=== PATIENT | male | born 2005 | race Caucasian/White ===

== ENCOUNTER 2023-04-26 10:20 | Emergency (ER) | payer BC, SELFPAY ==
--- NOTE | ~2023-04-26 | XR_ITS ---
EXAMINATION: XR LUMBOSACRAL SPINE CLINICAL INFORMATION: Back pain COMPARISON: None available. TECHNIQUE: Three views of the lumbosacral spine. FINDINGS: There are 6 nonrib-bearing lumbar-type vertebra with a transitional vertebra at the lumbosacral junction. 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 Using this convention, there is a grade 1 anterolisthesis of L5 on S1 with likely bilateral pars defects at L5. Vertebral body heights are preserved. Bowel gas pattern unremarkable XR/XR lumbar spine 2-3V IMPRESSION: Grade 1 anterolisthesis of L5 on S1 with likely bilateral pars defects at L5. There is a transitional vertebra at the lumbosacral junction as described above.
[2023-04-26 10:23] VITALS: BP 120/66; PULSE 79; RESP 16; TEMP 36.9; O2SAT 100; BMI 19.7
--- NOTE | 2023-04-26 10:37 | PC.NURSE ---
Pt reporting he was jumping on trampoline yesterday, this morning feeling dull pain in his lower back, reporting if he pushes on it he feels static around that area. Denies numbness/tingling/able to move all extremities, able to move around in bed with no concerns, denies BRADSHAW/blurry vision
--- NOTE | 2023-04-26 11:00 | ED_ITS ---
HPI - General Adult General Chief complaint: Back Pain/Injury Stated complaint: Lower back pain Time Seen by Provider: 04/26/23 10:46 Source: patient and RN notes reviewed Mode of arrival: ambulatory Limitations: no limitations History of Present Illness HPI narrative: 18-year-old male is here today for complaining of lower back pain. Patient reports that he was at the [employer] yesterday. Patient denies injury. Went to sleep without having any pain. Patient reports woke up this morning with lower back pain. Patient denies having any muscle spasm. Patient denies any fecal or urinary incontinence. Denies any tingling sensation. Patient reports that the pain does not radiate. Onset (ago): hour(s) Location: back Radiation: non-radiation Related Data Previous Rx's Medication Instructions Recorded ibuprofen 600 mg tablet 600 mg PO Q8H PRN pain #20 tabs 04/26/23 Allergies Allergy/AdvReac Type Severity Reaction Status Date / Time No Known Allergies Allergy Verified 04/26/23 10:22 Review of Systems Review of Systems: Constitutional : No Weight loss, No Fever, No Chills, No Night Sweats, No Fatigue, No Malaise Genitourinary : No Dysuria, No Urinary Frequency, No Hematuria, No Urinary Incontinence, No Urgency, No Flank Pain, No Urinary Flow Changes, No Hesitancy Musculoskeletal : No joint pain, No Myalgias, No Joint Swelling Skin : No Skin Lesions, No rash Neuro : No Weakness, No Numbness, No Paresthesias, No Loss of Consciousness, No Dizziness, No Headache Psych : No Anxiety/Panic, No Depression, No SI/HI/AH/VH, No Social Issues, Heme/Lymph: No Bruising, No Bleeding,No Lymphadenopathy Endocrine : No Polyuria, No Polydipsia, No Temperature Intolerance Yes all other systems are reviewed and are negative PMFSH Social History Social History Advance Directives: No Physical Exam ED Vital Signs: Vital Signs - 24 hr 04/26/23 10:23 Temperature 98.4 F Pulse Rate 79 Respiratory Rate 16 Blood Pressure 120/66 Pulse Oximetry 100 BMI result Body Mass Index 19.7 Const General: healthy appearing, no acute distress and well developed Nutritional Appearance: well nourished Orientation/consciousness: patient oriented x3 HENMT Head: Yes normal to inspection, Yes normocephalic and Yes atraumatic Face and sinus: Yes normal facial exam Mouth: Normal oral and palatal mucosa present Throat: Yes posterior oropharynx normal, Yes tonsils normal and Yes uvula midline Eyes General: appearance normal, both eyes and all related structures Neck Neck: Yes normal visual inspection, Yes full ROM and Yes trachea midline Thyroid: Thyroid normal Resp Effort & Inspection: normal respiratory effort GI Palpation (GI): Soft to palpation, not firm and nontender General: Yes no CVA tenderness Back/Spine/Pelvis Back: no CVA tenderness Skin General skin exam: elasticity normal, turgor normal and dry skin Neuro General: patient oriented x3 Course Course Course Narrative: 18-year-old male is here today for complaining of lower back pain. Patient reports that he was at the [employer] yesterday. Patient denies injury. Went to sleep without having any pain. Patient reports woke up this morning with lower back pain. Patient denies having any muscle spasm. Patient denies any fecal or urinary incontinence. Denies any tingling sensation. Patient reports that the pain does not radiate. Reevaluation(s) Reevaluation #1: Lumbar and spine x-ray negative for any acute processes. Patient will be giving ibuprofen. Patient can follow-up with his PCP. If symptoms get worse patient was encouraged to return to emergency department if he will have any fecal or urinary incontinence. Any tingling sensation. Medications Administered Discontinued Medications Generic Name Dose Route Start Last Admin Trade Name Freq PRN Reason Stop Dose Admin Ibuprofen 600 mg 04/26/23 11:00 04/26/23 11:05 Ibuprofen 600 Mg Tablet PO 04/26/23 11:01 600 mg ONCE ONE Administration Medical Decision Making Independent Interpretation I performed an independent interpretation of an: Plain X-Ray Radiology Impression Discussion of test interpretation with radiology: I have reviewed the radiologist's reading. Radiologist Impression: FINDINGS: There are 6 nonrib-bearing lumbar-type vertebra with a transitional vertebra at the lumbosacral junction. 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 Using this convention, there is a grade 1 anterolisthesis of L5 on S1 with likely bilateral pars defects at L5. Vertebral body heights are preserved. Bowel gas pattern unremarkable XR/XR lumbar spine 2-3V IMPRESSION: Grade 1 anterolisthesis of L5 on S1 with likely bilateral pars defects at L5. There is a transitional vertebra at the lumbosacral junction as described above. Discharge Plan Discharge Clinical Impression: Strain of lumbar region Qualifiers: Encounter type: initial encounter Qualified Code(s): S39.012A - Strain of muscle, fascia and tendon of lower back, initial encounter Patient Disposition: Home, Self-Care Instructions: Back Pain (ED), Lower Back Exercises (ED) Additional Instructions: You were seen here today for back pain. X-ray is negative for any acute finding. You will be giving script for ibuprofen. Please follow-up with your primary care doctor and return to ED if your symptoms will get worse or experience any other concerning symptoms Prescriptions: New ibuprofen 600 mg tablet 600 mg PO Q8H PRN (Reason: pain) Qty: 20 0RF Interventions: ED Discharge Assessment Last Done: 04/26/23 12:05 Discharge Date/Time: 04/26/23 12:06
[2023-04-26] MEDS: Ibuprofen 600 MG TABLET PO (11:05)
== END 2023-04-26 12:06 | disposition home or self-care (01) ==
PROVIDERS: Emergency Provider Emergency Medicine
DX: S39.012A Strain of muscle, fascia and tendon of lower back, initial encounter (principal); Y93.44 Activity, trampolining; Y92.9 Unspecified place or not applicable; Y99.9 Unspecified external cause status
CPT/HCPCS: 72100; 99283; 99284

== ENCOUNTER 2024-10-10 13:44 | Outpatient (AMB) | payer BC, SELFPAY ==
--- NOTE | 2024-10-10 13:45 | A.OFFPC_ITS ---
Vital Signs 10/10/24 13:47 Height 5 ft 8.9 in Weight 137 lb BMI 20.3 BP 110/50 L Blood Pressure Location Lt brachial Position Sitting Pulse 96 Pulse Source Pulse Oximeter Temp 97.3 F Temp Source Temporal Artery Scan Pulse Oximetry (%) 97 Oxygen Delivery Method Room Air Intake Visit Reasons: establish care Intake Note: Patient is a new patient here to establish care for wellness visit. Transferring care from Dr Garcia([facility]). Medical records have been requested and have received. Dental Assistant Teacher Required: No Tint Layer: Not Required per policy Accompanied by: Self / Same As Patient Allergies No Known Allergies Allergy (Verified 10/10/24 14:01) Medication List - Last Reconciled 10/10/24 by CARLOS Austin No Known Home Meds Tobacco use date assessed: 10/10/24 Dental Screening Dental Screen Date: 10/10/24 Did you have a dental visit in the last 12 months?: Yes Did you have a dental problem in the last 6 months where you did not have access to dental care?: No Was dental information given to patient?: Patient has dentist HPI establish care HPI Details The patient is a 19-year-old male presenting for a wellness visit as well as establishing care from Dr. Garcia ([facility]), primarily discussing anxiety management and lifestyle habits. He reports chronic anxiety since childhood, exacerbated by adulthood challenges. He smokes cannabis regularly to relieve anxiety, finding it beneficial, but notes the importance of regular meals, which he struggles with due to a demanding work schedule as a [employer]. He misses meals frequently, impacting his health negatively. Alcohol use is limited to social occasions. He does not use cigarettes. There is a family history of alcoholism, especially on his father's side, which influences his moderation with alcohol. The patient recounted an episode of fainting in a bar, suspecting it was due to not eating or hydrating adequately that day. Past medical history of a chlamydia diagnosis during adolescence was noted. [facility] Medical History (Updated 10/10/24 @ 23:55 by CARLOS Austin) Chlamydia Seasonal allergic rhinitis Anxiety Surgical History No pertinent past surgical history Family History (Updated 10/10/24 @ 23:46 by CARLOS Austin) Father Alcoholism Other Mental health disorder Substance use disorder Social History Housing: House Alcohol intake: current Alcohol intake frequency: holidays/special occasions only Patient Tobacco Use Status: Never used Tobacco e-Cigarette/Vaping Use: Currently Using Frequency of e-Cigarette/Vaping Use: Daily Second Hand Smoke Exposure: No service: No Current occupational status: employed Current occupation: [employer] Cognitive needs: No Hearing needs: No Vision needs: Yes (Glasses) Questionnaire PHQ-9 Over the last 2 weeks, how often have you been bothered by any of the following problems? 1. Little interest or pleasure in doing things: not at all 2. Feeling down, depressed, or hopeless: not at all 3. Trouble falling or staying asleep, or sleeping too much: not at all 4. Feeling tired or having little energy: not at all 5. Poor appetite or overeating: not at all 6. Feeling bad about yourself - or that you are a failure or have let yourself or your family down: not at all 7. Trouble concentrating on things, such as reading the newspaper or watching television: not at all 8. Moving or speaking so slowly that other people could have noticed. Or the opposite - being so fidgety or restless that you have been moving around a lot more than usual: not at all 9. Thoughts that you would be better off or of hurting yourself in some way: not at all Total score: 0 Depression Screening Interpretation: Negative Depression Screening Done: Yes 57017 - PHQ-9 Billing: Yes Source: Developed by Drs. Elmer Dasilva, Porsha Tovar, Kj Theodore and colleagues, with an educational brenda from [employer]. Thrive Questionnaire Date Thrive assessed: 10/10/24 I am a: Patient What is your living situation today?: I have a steady place to live Within the past 12 months, did the food you bought not last and you didn't have the money to get more?: Never true Within the past 12 months, did you worry whether your food would run out before you got money to buy more?: Never true Do you have trouble paying for medicines?: No Do you have trouble getting transportation to medical appointments?: No Do you have trouble paying your heating and electricity bill?: No Do you have trouble taking care of your child, family member or friend?: No Do you have trouble with day-to-day activities such as bathing, preparing meals, shopping, managing finances, etc.?: No Are you currently unemployed and looking for a job?: No Are you interested in more education?: No Please select the resources that you would like help with: None Currently or been in a relationship where the following occur: No concerns reported THRIVE Score: 0 AUDIT C Alcohol Use Questionnaire (AUDIT-C) 1. How often do you have a drink containing alcohol?: Monthly or less 2. How many drinks containing alcohol do you have on a typical day when you are drinking?: 1 or 2 Total Score: 1 BLADIMIR-7 AMB Questionnaire BLADIMIR-7 Date BLADIMIR - 7 assessed: 10/10/24 Feeling nervous, anxious, or on edge: 2 = More than half the days Not being able to stop or control worryin = Not at all Worrying too much about different things: 0 = Not at all Trouble relaxin = Several days Being so restless that it is hard to sit still: 0 = Not at all Becoming easily annoyed or irritable: 0 = Not at all Feeling afraid as if something awful might happen: 2 = More than half the days Total BLADIMIR-7 score (0-4 normal; 5-9 mild; 10-14 moderate; 15-21 severe): 5 Source: Developed by Drs. Elmer Dasilva, Porsha Tovar, Kj Theodore and colleagues, with an educational brenda from [employer]. BLADIMIR-7 Assessment Billing BLADIMIR-7 Assessment Tool: BLADIMIR-7 Assessment 16332 Review of Systems Const Denies headache(s) Eyes Denies loss of vision ENT Denies vertigo, Denies dizziness, Denies headache(s), Reports nasal congestion, Denies sore throat and Reports other (sneezing) Card Denies chest pain, Denies leg edema and Denies lightheadedness Resp Denies cough, Denies hemoptysis and Denies wheezing GI Denies abdominal pain, Denies melena, Denies constipation, Denies diarrhea and Denies vomiting Denies dysuria, Denies urinary frequency and Denies urinary urgency Musc Denies arthralgias, Denies joint swelling, Denies numbness and Denies tingling Neuro Denies Abnormal speech present, Denies behavioral changes, Denies vertigo, Denies dizziness, Denies headache(s), Denies loss of vision, Denies memory loss, Denies numbness and Denies tingling Psych Denies anxiety, Denies behavioral changes, Denies depression, Denies memory loss and Denies panic attacks Arley/Lymph Denies easy bleeding and Denies easy bruising Aller/Immun Denies wheezing Physical exam (Primary Care) Vital Signs: Last Vital Signs Temp 97.3 F 10/10/24 13:47 Pulse 96 10/10/24 13:47 BP 110/50 L 10/10/24 13:47 Pulse Ox 97 10/10/24 13:47 Oxygen Delivery Method Room Air 10/10/24 13:47 BMI result Body Mass Index 20.3 Tobacco/Smoking Status: Tobacco use Status Tobacco use date assessed 10/10/24 10/10/24 13:58 Patient Tobacco Use Status Never used Tobacco 10/10/24 13:58 e-Cigarette/Vaping Use Currently Using 10/10/24 13:58 PHQ-9: PHQ-9 Score PHQ-9: Total score 0 10/10/24 14:07 Depression Screening Interpretation: Negative Thrive Assessment: Date of Thrive Assessment Date Thrive assessed 10/10/24 10/10/24 13:58 Currently or been in a relationship where the following occur: No concerns reported Const General: healthy appearing, no acute distress, alert and awake Nutritional Appearance: well nourished Orientation/consciousness: oriented to person, oriented to place and oriented to time HENMT Ears: TM's normal bilaterally General nose exam: Normal nasal mucous membranes and turbinates present Eyes Conjunctivae: conjunctivae normal Sclerae: sclerae normal Pupils: Equal, round and reactive pupils present Neck Neck: Yes no lymphadenopathy and Yes no JVD Thyroid: Thyroid normal Carotids: no bruits Resp Effort & Inspection: normal respiratory effort and not tachypneic Auscultation: no crackles, no rales, no rhonchi and no wheezes Cardio Rate: regular rate Rhythm: regular rhythm Heart sounds: no murmurs and normal S1 and S2 GI Palpation (GI): Soft to palpation, nontender, no hepatomegaly and no splenomegaly Auscultation: normal bowel sounds Skin General skin exam: no rashes or lesions noted and dry skin Neuro General: oriented to person, oriented to place and oriented to time Cranial nerves: Yes Equal, round and reactive pupils present Speech: No Abnormal speech present Gait exam (Neuro): Normal gait present Motor exam (neuro): no tremor noted Extrem Right upper extremity: full ROM Left upper extremity: full ROM Right lower extremity: full ROM; no edema Left lower extremity: full ROM; no edema Psych Mental Status: mental status grossly normal Speech and movement: Normal speech and movement present Affect: normal affect Attitude: cooperative Thought process: Normal thought process present Coding Level of Care Code New Pt Prev Care 18-39yr([id number] Diagnoses Encounter for annual health examination Z00.00 Anxiety F41.9 Seasonal allergic rhinitis due to pollen J30.1 Allergic rhinitis trigger: pollen Marijuana use F12.90 Additional Codes PHQ-9 - 05822 - PHQ-9 Billing: Yes ([id number]) BLADIMIR-7 Assessment Billing - BLADIMIR-7 Assessment Tool: BLADIMIR-7 Assessment 77863 ([id number]) Time Spent (min) 33 Assessment & Plan Assessment & Plan (1) Encounter for annual health examination: Code(s): Z00.00 - Encounter for general adult medical examination without abnormal findings Category: Medical (2) Anxiety: Code(s): F41.9 - Anxiety disorder, unspecified Category: Medical (3) Seasonal allergic rhinitis: Code(s): J30.2 - Other seasonal allergic rhinitis Category: Medical Qualifiers: Allergic rhinitis trigger: pollen Qualified Code(s): J30.1 - Allergic rhinitis due to pollen (4) Marijuana use: Code(s): F12.90 - Cannabis use, unspecified, uncomplicated Category: Social Hx Plan The patient is advised to maintain regular meals and hydrate to support anxiety management and prevent syncope. A structured schedule to incorporate meal breaks during work hours is recommended. Discussed monitoring cannabis use and alcohol intake, emphasizing family history of alcoholism impact. Seasonal allergies will be managed with prescribed nasal spray and antihistamines. Vaccination and STD screening are reinforced as standard preventive practices. Blood work is ordered for overall health assessment. Patient was informed and verbally consented to the use of an ambient scribe for clinic note documentation during this visit. Orders: Orders Complete Blood Count Auto Diff Today Z00.00 - Encounter for general adult medical examination without abnormal findings, Z11.3 - Encounter for screening for infections with a predominantly sexual mode of transmission CT NG by PCR Today Z00.00 - Encounter for general adult medical examination without abnormal findings, Z11.3 - Encounter for screening for infections with a predominantly sexual mode of transmission UA CC w/rflx Micro + Cult Today Z00.00 - Encounter for general adult medical examination without abnormal findings, Z11.3 - Encounter for screening for infections with a predominantly sexual mode of transmission TSH reflex Free T4 Today Z00.00 - Encounter for general adult medical examination without abnormal findings, Z11.3 - Encounter for screening for infections with a predominantly sexual mode of transmission Lipid Panel Today Z00.00 - Encounter for general adult medical examination without abnormal findings, Z11.3 - Encounter for screening for infections with a predominantly sexual mode of transmission Vitamin D 25-OH Total Today Z00.00 - Encounter for general adult medical examination without abnormal findings, Z11.3 - Encounter for screening for infections with a predominantly sexual mode of transmission Glucose Fasting Today Z00.00 - Encounter for general adult medical examination without abnormal findings, Z11.3 - Encounter for screening for infections with a predominantly sexual mode of transmission Comprehensive [place]. Panel Fast Today Z00.00 - Encounter for general adult medical examination without abnormal findings, Z11.3 - Encounter for screening for infections with a predominantly sexual mode of transmission HIV Ab/Ag Today Z00.00 - Encounter for general adult medical examination without abnormal findings, Z11.3 - Encounter for screening for infections with a predominantly sexual mode of transmission Medications: New fluticasone propionate 50 mcg/actuation administer into each nostril 2 sprays intranasal BID PRN 16 grams 1RF allergy symptoms Discontinued ibuprofen Discontinued Reason: Patient Completed Course 600 mg PO Q8H PRN 20 tabs 0RF pain Patient Instructions: - Eat regular meals; don't skip breakfast and lunch. - Drink plenty of water during the day. - Monitor and moderate cannabis and alcohol use. - Use nasal spray and antihistamines for allergies as needed. - Get routine STI checks; practice safe sex. - Consider getting your flu shot each year. - Schedule a tetanus booster every 10 years.
--- OUTSIDE RECORDS SUMMARY | 2024-10-10 13:46 | XMS_ITS | Encounter Summary ---
Author Organization [facility] Address [address] [place] [phone] Phone Care Team Providers Care [employer] Maintainer Name Role Phone Aime Leon MD Primary Care Provider [phone] Encounter Details Date Type Department Care Team (Late st Contact Info) Description 02/05/2017 Conversion Encounter [facility] [address], [place] [id number] Social History Tobacco Use Types Packs/Day Years Used Date Smoking Tobacco: Never Comments:Never smoker Sex and Gender Information Value Date Recorded Sex Assigned at Male 07/21/2019 3:18 PM EST Legal Sex Male 4:56 PM EDT Gender Identity Male 07/21/2019 3:18 PM EST Sexual Orientation Straight 07/21/2019 3: 18 PM EST documented as of this encounter Plan of Treatment Not on file documented as of this encounter Visit Diagnoses Not on filedocumented in this encounter Care Teams [employer] Maintainer Relationship Specialty Start Date End Date Aime Leon MD [address] [place] [address] PCP - General Pediatrics 04/06/19 12/10/23 documented as of this encounter
--- OUTSIDE RECORDS SUMMARY | 2024-10-10 13:46 | XMS_ITS | Clinical Summary ---
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 Active acetaminophen 500 MG tabletIndicatio ns:Nonintractab le episodic headache, unspecified headache type Take 2 tablets (1,000 mg total) by mouth every 4 (four) hours as needed for headaches. 30 tablet 8 Active Additional Information Patient not taking.Reported on 11/05/2022 triamcinolone 0.025 % creamIndication s:Urticaria Apply topically once daily at approximately the same time each day. 80 g 1 2 Active Active Problems Problem Noted Date Diagnosed Date Atopic dermatitis 06/25/2009 Overview (07/14/2018): MIld. Using lotions and hydrocortisone valerate. Resolved Problems Problem Noted Date Diagnosed Date Resolved Date Exercise-induced asthma 05/17/201406/24 Overview (05/25/2018): albuterol as needed only 07/08 - No slbuterol use for 2-3 years. 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 No meds. Immunizations Immunization Administration Dates Next Due COVID-19 Pfizer, belia-sucros e, 12+ years 08/28/2021 DTaP 5 10/06/2007, 5,2003,07/25,2003 H1N1 06/25/2009 HPV, Quadrivalent 11/15/2014,06/20/2014,05/17/20 14 Hep A, ped/adol 04/21/2016,05/15/2015 Hep B, ped/adol 2003,2003,2003 Hib (HbOC) 06/11/2004 Hib (PRP-T) 2003,2003,2003 IPV 10/06/2007, 4,2003,05/09 Influenza Split 05/06/2012,03/12/2011,02/20/2010 Influenza, injectable, quadrivalent 04/07/2015,1 07/17/2013 Influenza, injectable, quadr ivalent, preservative free 05/02/2021,04/13/2020,05/11/2019,04/05,04/09/2017,04/21/2016,05/10/2013 Influenza, injectable, trivalent 010,05/25/2006,09/05/2004,06/11 MMR 10/06/2007,03/12/2004 Meningococcal B Trumenba 10/31/2020 Meningococcal Conj (Menactra) MCV4P 07/21/2019,1 07/17/2013 Pneumococcal Conjugate 06/11/2004,2003,2003,05/09 Tdap 05/17/2014 Varicella 10/06/2007,03/12/2004 Family History Medical History Relation Name Comments ADD / ADHD Father jarad sr. Asthma Father jarad sr. Diabetes Other Seizures Other Relation Name Status Comments Father jarad sr. Alive Father: ADD, As thma Mother Mary Carmen Alive Mother: Migrain es Other Family history of Seizure disorder, Family history of Asthma, Family history of Diabetes mellitus, Family history of *Dental caries, No family history of *Heart Disease, Family history of Obesity, No family history of *Sudden /[place] under 55, No family history of *CVA/Stroke, Family history of Sudden /[place] under age 55 Social History Tobacco Use Types Packs/Day Years Used Date Smoking Tobacco: Never Smokeless Tobacco: Never Tobacco Cessation:Counseling Given: Yes Comments:Never smoker Alcohol Use Standard Drinks/Week Comments Never 0 (1 standard drink = 0.6 oz pur e alcohol) Hunger/Food Answer Date Recorded In the last 12 months, did y ou or your family ever eat less than you felt you should because there wasn't enough money for food? No 10/31/2020 Stable Housing Answer Date Recorded Are you worried that in the next 2 months you may not have stable housing? No 10/31/2020 Transportation Concerns Answer Date Rec orded In the last 12 months, have you or your family ever had to go without healthcare because you didn't have a way to get there? No 10/31/2020 Hazards in Home Answer Date Recorded Think about the place you li ve. Do you have problems with any of the following? Pests (mice or roaches), mold, no/not working smoke detectors, water leaks, no window guards. No 2020 Financing Utilities Answer Date Recorde d In the last 12 months, has t he electric, gas, oil, or water company threatened to shut off your services in your home? No 10/31/2020 Safety at Home Answer Date Recorded Are you or your family worried about feeling saf e in your home? No 10/31/2020 Outside Support Answer Date Recorded Do you feel that you need mo re support from other people or programs to help you care for yourself or your family? No 10/31/2020 Understanding Health Concerns Answer Da te Recorded Do you need help understandi ng your or your child's healthcare needs (diagnosis, medications, plan, etc.)? No 10/31/2020 Financing Health Concerns Answer Date R ecorded In the last 12 months, was t here a time when your child needed to see a doctor or get medications or supplies but could not because of cost? No 10/31/2020 Missing School or Work Answer Date Audie rded Did you or your child miss s chool or work because of a health problem that could have been avoided? No 10/31/2020 Sex and Gender Information Value Date Recorded Sex Assigned at Male 07/21/2019 3:18 PM EST Legal Sex Male 4:56 PM EDT Gender Identity Male 07/21/2019 3:18 PM EST Sexual Orientation Straight 07/21/2019 3: 18 PM EST Last Filed Vital Signs Vital Sign Reading Time Taken Comments Blood Pressure 140/80 12/18/2021 2:13 PM EDT Pulse 74 08/28/2021 2:06 PM EST Temperature 36.4 ??C (97.5 ??F) 11/05/2022 9:55 AM ED T Respiratory Rate - - Oxygen Saturation - - Inhaled Oxygen Concentration - - Weight 64.9 kg (143 lb) 11/05/2022 9:55 AM EDT Height 176.5 cm (5' 9.5 ) 12/11/2021 11:32 AM ED T Body Mass Index 20.81 12/11/2021 11:32 AM EDT Plan of Treatment Health Maintenance Due Date Last Done Comments Men B Vaccine (2 of 2 - Trum enba SCDM 2-dose series) 05/03/2021 10/31/2020 Influenza Vaccines (#1) 2024 05/02/20, 04/13/2020, 05/11/2019, Additional history exists COVID-19 Vaccine (4 - 2023-2 5 season) 2024 08/28/2021, 01/21/2021, 12/31/2020 DTaP,Tdap,and Td Vaccines (7 - Td or Tdap) 05/17/2024 05/17/2014, 10/06/2007, 09/05/2004, Additional history exists Hepatitis B Vaccines Completed 2003, 2003, 2003 HIB Vaccines Completed 06/11/2004, 08/21, 2003, Additional history exists Pneumococcal Vaccine Completed 06/11/2004, 03/12/2004, 2003, Additional history exists IPV Vaccines Completed 10/06/2007, 08/21, 2003, Additional history exists MMR Vaccines Completed 10/06/2007, 03/12/2004 Varicella Vaccines Completed 10/06/2007, 03/12/2004 HPV Vaccines Completed 11/15/2014, 05/24, 05/17/2014 Hepatitis A Vaccines Completed 04/21/2016, 05/15/20 15 Meningococcal Vaccine Completed 07/21/2019, 014 Insurance [facility]
[2024-10-10 13:47] VITALS: BP 110/50; PULSE 96; TEMP 36.3; O2SAT 97; BMI 20.3
== END 2024-10-10 14:55 | disposition home or self-care (01) ==
DX: Z00.00 Encounter for general adult medical examination without abnormal findings (principal); F41.9 Anxiety disorder, unspecified; J30.1 Allergic rhinitis due to pollen; F12.90 Cannabis use, unspecified, uncomplicated

== ENCOUNTER → 2024-10-10 13:44 | Outpatient (BNVA) | payer BC, SELFPAY | DX: Z00.00 Encounter for general adult medical examination without abnormal findings (principal); F41.9 Anxiety disorder, unspecified; J30.1 Allergic rhinitis due to pollen; F12.90 Cannabis use, unspecified, uncomplicated | CPT/HCPCS: 96127 ==